=== PATIENT | female | born 1975 | race Caucasian/White ===

== ENCOUNTER 2017-08-19 10:11 | Day surgery (SDC) | payer BC ==
[~2017-08-19] VITALS: Ht 172.7 cm; Wt 69.2 kg
[2017-08-19] VITALS (14 sets, daily range): BP systolic 102–125; BP diastolic 69–83; PULSE 62–89; RESP 13–25; Ht 172.7 cm; Wt 69.2 kg
[2017-08-19] MEDS ORDERED: SOD CHLORIDE 0.9% 1,000 ML IV SCH (12:00)
[2017-08-19] MEDS ORDERED: LIDOCAINE 1% (MDV) 20 ML INJ ONE (12:31)
[2017-08-19] MEDS ORDERED: MIDAZOLAM 1 MG/ML 2 ML INJ ONE (12:56)
[2017-08-19] MEDS ORDERED: FENTAnyl 50 MCG/ML VIAL ONE (12:56)
[2017-08-19] MEDS ORDERED: GELATIN 12MM X 7 MM SPONGE ONE (12:56)
--- NOTE | 2017-08-19 13:39 | RADRPT ---
PROCEDURE: CT guided bone marrow aspiration and left iliac bone biopsy. CLINICAL INDICATION: History of lytic lesions. TECHNIQUE: Informed consent was obtained. The procedure, risks, benefits, complications and alternatives were e xplained to the patient. Risks including bleeding and infection were explained. The patient understo od and was willing to proceed. A procedural pause was performed. The patient's name, date of , and procedure to be performed were verified. One or more of the following dose reduction techni ques were used: Automated exposure control, adjustment of the mA and/or kV according to patient size , use of iterative reconstruction technique. Using local anesthetic, sterile technique and CT guidance, an 11-gauge On Control bone biopsy needle was advanced into the left iliac bone via a posterior approach. Bone marrow aspiration was perform ed yielding approximately 10 ml. The bone biopsy needle was then advanced an additional 4 cm using the power drill device and tissue was obtained. Adequate tissue was obtained according to the patho logist present during the procedure. The needle was removed. A postprocedural scan was performed. A dressing was applied. The patient tolerated procedure well. COMPARISON: None. FINDINGS: Initial images demonstrate the tip of the needle at the posterior margin of the left iliac bone. Timmons bsequent images demonstrate the needle within the bone. Post biopsy images demonstrate no immediate complication. IMPRESSION: 1. Successful CT guided bone marrow aspiration and biopsy. RPTAT: QQ .Chaz Han MD, Date Time Electronically viewed and signed by .Chaz Han MD, on 08/19/2017 13:39 .R/
[2017-08-19] MEDS ORDERED: HYDROCODONE/APAP (5/325) TAB PO PRN (14:00)
== END 2017-08-19 16:47 | disposition home or self-care (01) ==
LOC: SDS 10:11
PROVIDERS: ATTEND Internal Medicine Hematology
DX: M89.9 Disorder of bone, unspecified (principal)
CPT/HCPCS: 38221; 77012; 88305; 88313; J2250; J3010; Z7610

== ENCOUNTER 2018-05-13 09:30 | Day surgery (SDC) | END 2018-05-13 14:30 | disposition home or self-care (01) ==